=== PATIENT | female | born 1975 | race Caucasian/White ===

== ENCOUNTER 2024-09-30 17:01 | Emergency (ER) | payer OTHER, SELFPAY ==
[2024-09-30 17:05] VITALS: BP 145/99
[2024-09-30 17:48] LABS: Hematocrit 38.1 % (37.0-47.0); Hemoglobin 12.9 g/dL (12.0-16.0); Mean Corp Hgb Conc. 33.9 g/dL (33.0-37.0); Mean Corpuscular Volume 81.1 fL (81.0-99.0); Nucleated Red Blood Cells % 0 %; Platelet Count 291 10^3/uL (130-400); Red Cell Dist. Width 13.2 % (11.5-14.5)
[2024-09-30 17:56] LABS: ALT (SGPT) 22 U/L (0-35); AST (SGOT) 26 U/L (14-36); Albumin 4.6 g/dl (3.5-5.0); Alkaline Phosphatase 96 U/L (38-126); Blood Urea Nitrogen 22 mg/dl (7-17); Calcium 9.9 mg/dl (8.4-10.2); Carbon Dioxide 22 mmol/L (22-30); Chloride 111 mmol/L (98-107); Glucose 110 mg/dl (70-99); Potassium 3.8 mmol/L (3.5-5.1); Sodium 139 mmol/L (135-145); Total Protein 7.5 g/dl (6.3-8.2); eGFR > 60.00
[2024-09-30 18:07] LABS: Troponin I < 0.012 ng/ml
--- NOTE | 2024-09-30 21:17 | ED.GENMED ---
History of Present Illness
<Jose Juan Sutherland, DO - Last Filed: 09/30/24 21:21>
General
Chief Complaint: Anxiety
Time Seen by Provider: 09/30/24 20:59
<Panchito Espinal MD, Resident - Last Filed: 09/30/24 21:29>
General
Source: patient
Nursing documentation reviewed up to this point in time: agreed with
History of Present Illness
History of Present Illness:
This is a 49-year-old female with known history of anxiety, on sertraline 50 mg presenting in the emergency department after having a panic attack with palpitation while driving. She reportedly had multiple panic attacks in the past starting from
December 2023. Her biggest concern is her health; no facial medical diagnosis at this time. She follows with PCP for anxiety and panic attacks. Denies any chest pain, trouble breathing, fever or chills, any GI symptoms or urinary symptoms, denies
any weakness, headache or any vision changes. She just wanted to be in a safe place if any serious condition develop
Reported that in the past when she had a panic attack she was prescribed alprazolam but she never used it and still has that at home.
Past History
<Panchito Espinal MD, Resident - Last Filed: 09/30/24 21:29>
Past History
ED Past Medical History: Psychiatric (Anxiety, panic attack)
ED Past Surgical History: None
Patient has exhibited threatening behavior?: No
Social History
Tobacco: Non-smoker
Alcohol: None
Drug: None
Employment: Employed (Teacher)
Family History
Family History: Other (Noncontributory)
Review of Systems
<Panchito Espinal MD, Resident - Last Filed: 09/30/24 21:29>
Review of Systems
Constitutional: Denies fever, night sweats or chills
EENT: Denies sore throat
Respiratory: Denies cough
Cardiac: Denies chest pain
ABD/GI: Denies abdominal pain
: Denies dysuria
Musculoskeletal: Denies joint pain
Neurological: Denies dizzy or headache
Endocrine: Denies polyuria
Psychiatric: Reports anxiety; Denies suicidal
Phy Exam
<Panchito Espinal MD, Resident - Last Filed: 09/30/24 21:29>
General Physical Exam
General Presentation: no apparent distress
General age: appears stated age
General Skin: warm
General Habitus: normal
General Mental: alert
General Hydration: appears well hydrated
Eye Exam
Eye Exam: PERRL and EOMI
Cardiovascular Exam
Cardiovascular Exam: regular rate/rhythm and no murmur
Pulmonary Exam
Pulmonary Exam: lungs clear, no respiratory distress, no crackles and no cough
Gastrointestinal Exam
Gastrointestinal Exam: normal bowel sounds, non tender, soft and non distended
Neurological Exam
Neurological Exam: alert, oriented x3, CN II-XII intact, no motor deficits and no sensory deficits
Psychiatric Exam
Psychiatric Exam: anxious
Course
<Jose Juan Sutherland, DO - Last Filed: 09/30/24 21:21>
Orders/Labs/Results
Orders:
Orders
09/30/24 17:09
Electrocardiogram (*1) Urgent
Reason for Study: Chest Pain
EKG- Treatment ONCE
09/30/24 17:27
Complete Blood Count/With Diff Urgent
Comprehensive Metabolic Panel Urgent
Troponin I Urgent
09/30/24 21:20
Lorazepam [Ativan] 1 mg PO NOW STA
Abnormal Lab Results
09/30/24
17:27
Chloride 111 H mmol/L
(98-107)
BUN 22 H mg/dl
(7-17)
Glucose 110 H mg/dl
(70-99)
09/30/24 17:27
09/30/24 17:27
Vital Signs
Initial and Last Documented VS:
Initial Vital Signs
Temp Pulse Resp BP Pulse Ox
99.2 F 109 18 145/99 99
09/30/24 17:05 09/30/24 17:05 09/30/24 17:05 09/30/24 17:05 09/30/24 17:05
Last Documented Vital Signs
Temp Pulse Resp BP Pulse Ox
99.2 F 109 18 145/99 99
09/30/24 17:05 09/30/24 17:05 09/30/24 17:05 09/30/24 17:05 09/30/24 17:05
<Panchito Espinal MD, Resident - Last Filed: 09/30/24 21:29>
Orders/Labs/Results
Orders:
Orders
09/30/24 17:09
Electrocardiogram (*1) Urgent
Reason for Study: Chest Pain
EKG- Treatment ONCE
09/30/24 17:27
Complete Blood Count/With Diff Urgent
Comprehensive Metabolic Panel Urgent
Troponin I Urgent
09/30/24 21:20
Lorazepam [Ativan] 1 mg PO NOW STA
Abnormal Lab Results
09/30/24
17:27
Chloride 111 H mmol/L
(98-107)
BUN 22 H mg/dl
(7-17)
Glucose 110 H mg/dl
(70-99)
09/30/24 17:27
09/30/24 17:27
Vital Signs
Initial and Last Documented VS:
Initial Vital Signs
Temp Pulse Resp BP Pulse Ox
99.2 F 109 18 145/99 99
09/30/24 17:05 09/30/24 17:05 09/30/24 17:05 09/30/24 17:05 09/30/24 17:05
Last Documented Vital Signs
Temp Pulse Resp BP Pulse Ox
99.2 F 109 18 145/99 99
09/30/24 17:05 09/30/24 17:05 09/30/24 17:05 09/30/24 17:05 09/30/24 17:05
<Panchito Espinal MD, Resident - Last Filed: 09/30/24 21:29>
MDM/Problems Addressed
Differential Diagnosis Includes:
Panic attack vs cardiac vs other
MDM/Problems Addressed:
CBC, CMP, EKG, serum troponin--unremarkable
1 mg Ativan p.o. given in the ER. Patient has alprazolam from previous scripts that she never used; she is aware she can use that if she develops another panic attack at home.
Discussed with the patient very likely it was a panic attack and recommend to follow-up with the PCP for potentially increasing sertraline versus adding another medication to the regimen. There is no indication of any imaging at this time. Patient
agreed with the plan and voices understanding.
Chronic conditions affecting care: Psychiatric illness
<Panchito Espinal MD, Resident - Last Filed: 09/30/24 21:29>
*Pulse Oximetry
SaO2: 99
Patient hypoxic: no
*Critical Care Note
Total Time (30-74mins, 75-104mins- exclusive of procedures): Not Applicable
ED Attending Note
<Jose Juan Sutherland, - Last Filed: 09/30/24 21:21>
ED Attending Note
Patient seen and examined by attending physician: Yes
I performed a history and physical exam of patient and discussed management with resident, I reviewed resident's note and agree with documented findings and plan of care.: Yes
ED Attending Note:
Seen with resident examined independently 49-year-old female with anxiety on sertraline has as needed alprazolam which she did not take, presents with a panic attack labs and EKG noted we will try dose of benzo here have her follow-up as an
outpatient
<Panchito Espinal MD, Resident - Last Filed: 09/30/24 21:29>
-
Portions of this chart may have been created with voice recognition software.� Occasional wrong word or��sound alike� substitutions may have occurred due to the inherent limitations of voice recognition software.
Discharge Plan
Departure
Patient Disposition: Home (Routine Discharge)
Date of Disposition: 09/30/24
Time of Disposition: 21:21
Patient with high blood pressure during this ER visit?: Yes
Discharge Problem:
Panic attack
Instructions: Anxiety, Adult (DC), Panic Disorder (DC), BLOOD PRESSURE
Activity Restrictions/Additional Instructions:
You were seen at [facility] emergency department after having a panic attack while driving. While you are in the hospital we performed complete blood count, complete metabolic panel, serum troponin, EKG. All the workup was negative. You
were given 1 mg of Ativan in the hospital. You can use alprazolam as needed which was prescribed in the past while awaiting follow-up with your family doctor to discuss further treatment options or potentially increasing the dose of sertraline.
Please return to the emergency department if you develop any chest pain, shortness of breath or any other worrisome symptoms.
Interventions
Interventions:
*Risk Screen - Suicide Last Done: 09/30/24 17:08
*General Assessment Last Done: 09/30/24 17:08
*Neglect/Abuse Screening Last Done: 09/30/24 17:08
*ED COVID-19 Vaccine History Last Done: 09/30/24 17:08
Discharge Date and Time
Print Language: ZAMBIAN
[2024-09-30 21:28] VITALS: BP 125/70; BMI 39.7
[2024-09-30] MEDS: ATIVAN 1 MG PO (21:29)
== END 2024-09-30 22:04 | disposition home or self-care (01) ==
LOC: EMR 17:01
PROVIDERS: Emergency Medicine; EMERGENCY PHYSICIAN Emergency Medicine
DX: F41.0 Panic disorder [episodic paroxysmal anxiety] (principal); R00.2 Palpitations; F41.9 Anxiety disorder, unspecified; R03.0 Elevated blood-pressure reading, without diagnosis of hypertension; Z79.899 Other long term (current) drug therapy
CPT/HCPCS: 99283; 80053; 84484; 85025; 93005